=== PATIENT | male | born 1995 | race Caucasian/White ===

== ENCOUNTER → 2021-05-29 | Outpatient (CLI) | payer BC | LOC: US 08:00 | PROVIDERS: ATTEND Internal Medicine | DX: N43.41 Spermatocele of epididymis, single (principal) | CPT/HCPCS: 76870; 93976 ==

== ENCOUNTER → 2023-12-13 | Day surgery (SDC) | payer BC ==
[~2023-12-13] MED LIST: ACETAMINOPHEN 1000 MG/100 ML IV ONE; BUPIVACAINE 0.25% 30ML SDV ONE; DEXAMETHASONE SOD PHOS INJ 4 MG/ML SDV ONE; DEXMEDETOMIDINE HCL 200 MCG/2 ML VIAL ONE; FENTANYL CITRATE/PF 100MCG/2 ML INJ ONE; LIDOCAINE 1% W/EPINEPHRINE 20 ML VIAL ONE; LIDOCAINE HCL 2% LOCAL INJ 5 ML SDV VIAL INJ ONE; MIDAZOLAM HCL 2 MG/2 ML VIAL ONE; MULTI-VITAMIN1 EACH PO; ONDANSETRON HCL INJ 2MG/ML 2ML 2 MG/ML VIAL ONE; PROPOFOL IV EMULSION 10 MG/ML 20 ML VIAL ONE; SEVOFLURANE INHAL SOLN 250 ML PEN BTL ONE
[2023-12-13] MEDS: LACTATED RINGER'S 1,000 ML ONE (10:31)
[2023-12-13 10:51] LABS: BASOPHILS # (AUTO) 0.1 (0.0-0.1); BASOPHILS % 1.2 % (0.0-1.0); EOSINOPHILS # (AUTO) 0.2 (0.0-0.4); HEMATOCRIT 44.3 % (38.2-49.6); HEMOGLOBIN 14.8 g/dL (14.0-18.0); LYMPHOCYTES # (AUTO) 2.2 (1.0-3.2); LYMPHOCYTES % 38.5 % (18.0-39.1); MEAN CORPUSCULAR HEMOGLOBIN 30.3 pg (28-32); MEAN CORPUSCULAR HGB CONC 33.4 g/dL (31-35); MEAN CORPUSCULAR VOLUME 90.8 fL (81-99); MONOCYTES # (AUTO) 0.4 (0.2-0.8); MONOCYTES % 7.6 % (4.4-11.3); NEUTROPHILS # (AUTO) 2.8 (2.1-6.9); NEUTROPHILS % 49.2 % (38.7-80.0); PLATELET COUNT 284 x10e3/uL (140-360); RED BLOOD COUNT 4.88 x10e6/uL (4.3-5.7); RED CELL DISTRIBUTION WIDTH 12.1 % (11.7-14.4); WHITE BLOOD COUNT 5.66 x10e3/uL (4.8-10.8)
[2023-12-13 11:00] LABS: ANION GAP 12.4 mmol/L (8-16); CALCIUM 9.3 mg/dL (8.4-10.2); CREATININE, SERUM 1.32 mg/dL (0.72-1.25); POTASSIUM 4.4 mmol/L (3.5-5.1)
[2023-12-13 13:18] VITALS: TEMP 97.5
[2023-12-13 14:40] VITALS: BP 127/70; PULSE 59; RESP 16; O2SAT 98
[2023-12-13] MEDS: HYDROCODONE/APAP 7.5MG-325MG 1 EA TAB ONE (14:43)
[2023-12-13] MEDS: ONDANSETRON HCL INJ 2MG/ML 2ML 2 MG/ML VIAL ONE (14:54)
== END | disposition home or self-care (01) ==
LOC: OR 09:47
PROVIDERS: ATTEND Surgery
DX: N43.3 Hydrocele, unspecified (principal); K40.91 Unilateral inguinal hernia, without obstruction or gangrene, recurrent; K21.9 Gastro-esophageal reflux disease without esophagitis
CPT/HCPCS: 36415; 49520; 55040; 80048; 85025; 88304; J0131; J1100; J2001; J2250; J2405; J2704; J3010; J7121; 88302